=== PATIENT | female | born 1960 | race Caucasian/White ===

== ENCOUNTER 2020-09-25 07:48 | Outpatient (CLI) | payer OTHER, SELFPAY ==
--- NOTE | 2020-09-25 07:52 | MM_ITS ---
WS: [id number] Exam: [place] [id number] Date/Time of Exam: 09/25/2020 7:57 AM Reason For Exam: SCREENING VIEWS: MLO and CC views both breasts. Comparison made with prior exam of 04/14/2017. Findings: There was no sign of mass, architectural distortion or suspicious calcification in either breast. Fa tty MM/[place] [id number] Impression: BI-RADS: 2-Benign FOLLOW-UP: 1 Year Follow-up This mammogram was also analyzed by the Computer Aided Detection System R2 Imag e Application Defense Manager.
== END 2020-09-25 07:49 | disposition home or self-care (01) ==
LOC: RADSHAW 07:51
PROVIDERS: Family Provider Family Medicine; PCP Family Medicine; Visit Provider Family Medicine
DX: Z12.31 Encounter for screening mammogram for malignant neoplasm of breast (principal)
CPT/HCPCS: 77067

== ENCOUNTER 2022-12-04 12:06 | Outpatient (CLI) | payer OTHER, SELFPAY ==
--- NOTE | 2022-12-04 12:22 | CT_ITS ---
WS: [id number] CT CHEST TECHNIQUE: Contrast enhanced CT of the chest with coronal and sagittal reformatted images. CLINICAL INFORMATION: SHORTNESS OF BREATH AT REST COMPARISON: None. DLP: 714.[address] scans at [facility] use at least one of these dose optimization techniques: automated e xposure control; mA and/or kV adjustment per patient size (includes targeted exams where dose is matc hed to clinical indication); or iterative reconstruction. FINDINGS: Lungs are well aerated. No acute pulmonary infiltrates. No focal pneumonia or pleural fluid. A few ca lcified granulomas. Normal thyroid gland. Normal caliber thoracic aorta. Normal descending thoracic a teresa. No mediastinal or hilar lymphadenopathy. No axillary lymphadenopathy. Diffuse fatty infiltration liver. Normal portal vein and splenic vein. Small hepatic cyst measuring 9 mm. Adrenal glands are normal. Celiac is patent. Upper abdominal aorta partially visualized normal c aliber. Adrenal glands are normal. Small esophageal hiatal hernia. Mild thoracic curve. CT/CT chest w con* [id number] IMPRESSION: 1. Lungs are well aerated. No acute pulmonary infiltrates. No focal pneumonia or pleural fluid. 2. Normal caliber thoracic aorta. 3. No mediastinal or hilar lymphadenopathy. 4. Small esophageal hiatal hernia. 5. Partially visualized hepatomegaly with diffuse fatty infiltration liver. 6. No other remarkable findings.
--- NOTE | 2022-12-04 12:22 | CT_ITS ---
WS: [id number] CT NECK TECHNIQUE: Contrast-enhanced CT of the neck with coronal and sagittal reformatted images. CLINICAL INFORMATION: LOCALIZED SWELLING,MASS, AND LUMP, NECK COMPARISON: None. DLP: 714.[address] scans at [facility] use at least one of these dose optimization techniques: automated e xposure control; mA and/or kV adjustment per patient size (includes targeted exams where dose is matc hed to clinical indication); or iterative reconstruction. FINDINGS: Parotid glands are normal in appearance. Normal submandibular glands. Normal posterior nasopharynx. M astoid air cells well aerated. Mild mucosal thickening RIGHT maxillary sinus. No evidence of supraglo ttic or glottic mass. Subglottic airway is patent. Normal thyroid gland. No cervical lymphadenopathy. Lung apices are well aerated. No evidence of subcutaneous mass or lesion in the LEFT neck. Mild spondylitic changes cervical spine with slight reversal normal cervical lordo sis. Incidental slightly low-lying cerebellar tonsils. Normal 4th ventricle. CT/CT neck w con* [id number] IMPRESSION: 1. No suspicious neck findings. 2. Normal salivary glands. 3. No cervical lymphadenopathy. 4. No evidence of supraglottic or glottic mass.
[2022-12-04] MEDS: iohexol 350 mg/mL 500 mL Btl (per mL) IV (12:27)
== END 2022-12-04 12:07 | disposition home or self-care (01) ==
LOC: RAD 12:15
PROVIDERS: PCP Family Medicine; Visit Provider Nurse Practitioner Family
DX: R06.02 Shortness of breath (principal); R22.1 Localized swelling, mass and lump, neck; K44.9 Diaphragmatic hernia without obstruction or gangrene; R16.0 Hepatomegaly, not elsewhere classified; K76.0 Fatty (change of) liver, not elsewhere classified
CPT/HCPCS: 70491; 71260; Q9967

== ENCOUNTER 2022-12-24 14:15 | Outpatient (CLI) | payer OTHER, SELFPAY ==
--- NOTE | 2022-12-24 14:26 | MM_ITS ---
WS: [id number] BILATERAL 3D TOMOSYNTHESIS DIGITAL SCREENING MAMMOGRAPHY WITH CAD CLINICAL INFORMATION: SCREENING HISTORY: Screening mammogram. History of LEFT lumpectomy COMPARISON: September 25, 2020 TECHNIQUE: Bilateral CC and MLO views. FINDINGS: Scattered fibroglandular densities bilaterally. No suspicious focal mass, asymmetry, calcifications, or architectural distortion. No evidence of malignancy. A few incidental punctate and lucent center c alcifications. Dense breast tissue anterior RIGHT breast is unchanged. MM/[place] [id number] IMPRESSION: BI-RADS: 2-Benign FOLLOW UP: 1 Year Follow-up Recommend return to annual screening mammography.
== END 2022-12-24 14:16 | disposition home or self-care (01) ==
LOC: RAD 14:17
PROVIDERS: PCP Family Medicine; Visit Provider Nurse Practitioner Family
DX: Z12.31 Encounter for screening mammogram for malignant neoplasm of breast (principal)
CPT/HCPCS: 77063; 77067

== ENCOUNTER 2024-06-22 15:03 | Outpatient (CLI) | payer OTHER, SELFPAY ==
--- NOTE | 2024-06-22 15:40 | MM_ITS ---
WS: [id number] Bilateral screening 3D tomosynthesis digital mammogram, 06/22/2024 3:07 PM Clinical Data: SCREENING Comparison: 12/24/2022, 09/25/2020, 08/02/2019, 07/06/2018, 04/14/2017, 11/12/2010. Findings: No spiculated masses or clustered calcifications are seen. There are no secondary signs of carcinoma . MM/MM scr BI tomosynthesis [id number] Impression: Negative bilateral mammogram unchanged. Recommend annual screening mammograms. BIRADS: 1 - Negative. FOLLOW UP: 1 Year Follow-up DENSITY: There are scattered areas of fibroglandular density. The CAD food checkers and cashiers supervisor was used
== END 2024-06-22 15:04 | disposition home or self-care (01) ==
LOC: MOBLMAM 15:05
PROVIDERS: PCP Family Medicine; Visit Provider Family Medicine
DX: Z12.31 Encounter for screening mammogram for malignant neoplasm of breast (principal)
CPT/HCPCS: 77063; 77067

== ENCOUNTER 2025-07-12 10:42 | Outpatient (CLI) | payer OTHER, SELFPAY ==
--- NOTE | 2025-07-12 11:00 | MM_ITS ---
WS: [id number] SCREENING DIGITAL BREAST TOMOSYNTHESIS MAMMOGRAM WITH CAD HISTORY: SCREENING COMPARISON: 06/22/2024, 12/24/2022, 04/14/2017 Bilateral CC and MLO with tomosynthesis and synthetic mammography submitted. Computer aided detection analyzed. Breast composition: There are scattered areas of fibroglandular density. Irregular nodule measuring 5 x 4 x 4 mm in the upper outer quadrant of the RIGHT breast at a posterior depth. This may've been present on prior studies but better visualized today. Recommend additional imaging at this time. Benign calcifications in the RIGHT breast. MM/MM scr BI tomosynthesis [id number] IMPRESSION: BI-RADS: 0 - Incomplete: Need additional imaging evaluation. FOLLOW UP: Need Additional Imaging RIGHT breast: Spot compression views (CC and MLO). True ML. Ultrasound to follo w if abnormality persists.
== END 2025-07-12 10:43 | disposition home or self-care (01) ==
LOC: MOBLMAM 10:43
PROVIDERS: PCP Family Medicine; Visit Provider Family Medicine
DX: Z12.31 Encounter for screening mammogram for malignant neoplasm of breast (principal); R92.323 Mammographic fibroglandular density, bilateral breasts; N63.11 Unspecified lump in the right breast, upper outer quadrant; R92.1 Mammographic calcification found on diagnostic imaging of breast
CPT/HCPCS: 77063; 77067

== ENCOUNTER 2025-08-06 08:50 | Outpatient (CLI) | payer OTHER, SELFPAY ==
--- NOTE | 2025-08-06 08:56 | MM_ITS ---
WS: [id number] ADDITIONAL VIEWS RIGHT MAMMOGRAM WITH DIGITAL BREAST TOMOSYNTHESIS. RIGHT BREAST ULTRASOUND HISTORY: ABNORMAL MAMMOGRAM OF R BREAST COMPARISON: 07/12/2025, 06/22/2024, 12/24/2022, 07/06/2018 RIGHT MAMMOGRAM: Spot compression views and true ML with digital breast tomosynthesis and SM. Breast composition: There are scattered areas of fibroglandular density. Asymmetry persists measuring 4 x 4 x 4 mm in the upper outer quadrant of the RIGHT breast. Favor this is probably a lymph node. Ultrasound will be performed also. RIGHT BREAST ULTRASOUND 2-D and color Doppler imaging submitted. No ultrasound abnormality is noted in the upper outer quadrant of the RIGHT breast. MM/MM diag RT tomosynthesis [id number] IMPRESSION: BI-RADS: 2 - Benign. FOLLOW UP: 1 Year Follow-up Nodule in the upper outer quadrant of the RIGHT breast appears to be a lymph no de.
== END 2025-08-06 08:51 | disposition home or self-care (01) ==
LOC: RAD 08:53
PROVIDERS: PCP Family Medicine; Visit Provider Family Medicine
DX: R92.8 Other abnormal and inconclusive findings on diagnostic imaging of breast (principal); R92.321 Mammographic fibroglandular density, right breast; N64.89 Other specified disorders of breast
CPT/HCPCS: 76642; 77061; G0279